=== PATIENT | female | born 1945 | race Caucasian/White ===

== ENCOUNTER 2017-03-10 10:23 | Outpatient (CLI) | payer MEDICARE ==
--- NOTE | 2017-03-11 13:51 | Mammography Report ---
DIGITAL SCREENING MAMMOGRAM: 03/10/2017 CLINICAL INDICATION: A 71-year-old nulliparous patient, for screening. COMPARISON: 02/2016, 02/2015, 02/2014, 02/2013, 02/2012, 02/2011, 02/2010. TECHNIQUE: Routine CC and MLO projections were obtained of the breasts. FINDINGS: The breasts again demonstrate fatty replacement bilaterally. Coarse, typically benign calc ifications are present. No suspicious masses, clustered microcalcifications, or regions of architectu ral distortion are identified. IMPRESSION: BENIGN FINDINGS. RECOMMENDATION: ROUTINE ANNUAL SCREENING UNLESS OTHERWISE CLINICALLY INDICATED. BIRADS CATEGORY 2-BENIGN FINDINGS. STANDARD QUALIFYING STATEMENTS 1. This examination was reviewed with the aid of Computer-Aided Detection (CAD). 2. A negative or benign imaging report should not delay biopsy if clinically suspicious findings are present. Consider surgical consultation if warranted. More than 5% of cancers are not identified by i maging. 3. Dense breasts may obscure an underlying neoplasm. JOB #: [id number] EXT JOB #:[id number]
== END 2017-03-10 10:24 | disposition home or self-care (01) ==
LOC: DI.N 10:23
PROVIDERS: ATTEND Family Medicine
DX: Z12.31 Encounter for screening mammogram for malignant neoplasm of breast (principal)
CPT/HCPCS: 77067

== ENCOUNTER 2018-01-04 20:58 | Outpatient (CLI) | payer MEDICARE ==
--- NOTE | 2018-01-05 11:37 | Ultrasound Report ---
Procedure Date: 01/04/2018 Accession Number: [id number] / [id number] Procedure: US - Abdomen Complete CPT Code: FULL RESULT: EXAM: Abdomen Complete DATE: 01/04/2018 9:35 PM CLINICAL HISTORY: IDIOPATHIC ACUTE PANCREATITIS W/UNINFECTED NECROSI COMPARISON: 04/11/2012 TECHNIQUE: Real-time scanning was performed with static images obtained. FINDINGS: Liver: Liver is echogenic, compatible with fatty infiltration. 15.7 cm. Main portal vein flow: Hepatopetal. Gallbladder: Normal. No stones, wall thickening, or sonographic Forbes's sign. Biliary System: Common bile duct measures 3 mm. No intrahepatic or extrahepatic ductal dilatation. Pancreas: Visualized portion is unremarkable. Kidneys: Right: 10.1 cm longitudinally. Normal. No contour-deforming mass, stones, or hydronephrosis. Left: 10.7 cm longitudinally. Normal. No contour-deforming mass, stones, or hydronephrosis. Spleen: 8.4 cm. Normal in size and echotexture. Aorta and Inferior Vena Cava: Unremarkable. IMPRESSION: Fatty infiltration of the liver. No evident pancreatic abnormality. No peripancreatic fluid identified. RADIA
== END 2018-01-04 20:59 | disposition home or self-care (01) ==
LOC: DI 20:58
PROVIDERS: ATTEND Family Medicine
DX: K76.0 Fatty (change of) liver, not elsewhere classified (principal)
CPT/HCPCS: 76700

== ENCOUNTER 2018-02-02 07:44 | Outpatient (CLI) | payer MEDICARE ==
--- NOTE | 2018-02-03 18:42 | MRI Report ---
Procedure Date: 02/02/2018 Accession Number: [id number] / [id number] Procedure: MRI - MRCP W/O CPT Code: FULL RESULT: EXAM: MR ABDOMEN WITHOUT CONTRAST (MR CHOLANGIOPANCREATOGRAPHY) EXAM DATE: 02/02/2018 08:49 AM. CLINICAL HISTORY: Epigastric pain, chronic pancreatitis. COMPARISON: Abdominal ultrasound 01/04/2018. TECHNIQUE: Multiplanar breath-hold T1 and T2 sequences obtained through the abdomen on an MR scanner. Dedicated 2D and 3D MRCP sequences obtained through the biliary and pancreatic ducts. No intravenous contrast given. FINDINGS: Lung Bases: Grossly clear. Gallbladder: Unremarkable. No filling defect or obvious wall thickening. Bile Ducts: No intrahepatic or extrahepatic ductal dilatation. CBD up to 6.3 mm in diameter. No intraductal filling defect or obstructing lesion identified. Grossly smooth ductal wall. Liver: Normal size and contour. Diffuse parenchymal signal loss on opposed phase gradient-echo consistent with steatosis. No focal lesion identified on this noncontrast exam. Normal signal void in major hepatic vasculature. Pancreas: Normal contour and signal. Divisum ductal anatomy. No ductal dilatation. There is subtle peripancreatic T2 hyperintensity posteriorly at the level of the body. No pseudocyst. Spleen: No splenomegaly or focal lesion identified. Adrenals: No nodule. Kidneys: Unremarkable. No hydronephrosis or focal lesion identified. Other: No acute intestinal abnormality identified. No pathologic adenopathy. Normal caliber abdominal aorta. Variant circumaortic left renal vein. No obvious marrow replacement process. IMPRESSION: 1. Possible mild acute pancreatitis. 2. Pancreas divisum. 3. Unremarkable gallbladder. No biliary dilatation or choledocholithiasis. 4. Moderate hepatic steatosis. RADIA
== END 2018-02-02 07:45 | disposition home or self-care (01) ==
LOC: DI 07:44
PROVIDERS: ATTEND Family Medicine
DX: R10.13 Epigastric pain (principal); K86.1 Other chronic pancreatitis; K76.0 Fatty (change of) liver, not elsewhere classified
CPT/HCPCS: 74181

== ENCOUNTER 2018-03-15 09:59 | Outpatient (CLI) | payer MEDICARE ==
--- NOTE | 2018-03-24 14:15 | Mammography Report ---
Reason: ROUTINE SCREENING MAMMO WITH NICOLE Procedure Date: 03/15/2018 Accession Number: [id number] / [id number] Procedure: SHAISTA - Screening Mammo w/Nicole CPT Code: FULL RESULT: EXAM: Screening Mammo w/Nicole DATE: 03/15/2018 11:04 AM CLINICAL HISTORY: 72 year-old nulliparous female presents for screening mammography. TECHNIQUE: Bilateral CC and MLO views were obtained. COMPARISON: 05/02/2017, 03/10/2017, 03/08/2016, 03/04/2015. FINDINGS: The breasts demonstrate scattered fibroglandular densities bilaterally. Typically benign coarse calcifications as well as typically benign large rodlike calcifications are seen bilaterally. No suspicious masses, clustered microcalcifications, or regions of architectural distortion are identified. IMPRESSION: Benign findings RECOMMENDATION: Routine annual screening unless otherwise clinically indicated. BIRADS CATEGORY 2: Benign findings STANDARD QUALIFYING STATEMENTS: 1. This examination was not reviewed with the aid of Computer-Aided Detection (CAD). 2. A negative or benign imaging report should not delay biopsy if clinically suspicious findings are present. Consider surgical consultation if warrented. More than 5% of cancers are not identified by imaging. 3. Dense breasts may obscure an underlying neoplasm. 4. This examination was reviewed with the aid of 3D breast imaging (tomosynthesis).
== END 2018-03-15 10:00 | disposition home or self-care (01) ==
LOC: DI 09:59
PROVIDERS: ATTEND Radiology Diagnostic Radiology
DX: Z12.31 Encounter for screening mammogram for malignant neoplasm of breast (principal)
CPT/HCPCS: 77063; 77067

== ENCOUNTER 2019-02-12 14:12 | Outpatient (CLI) | payer MEDICARE ==
--- NOTE | 2019-02-13 17:00 | XRAY Report ---
Reason: WRIST JOINT PAIN,RIGHT Procedure Date: 02/12/2019 Accession Number: [id number] / [id number] Procedure: XRN - Wrist 4 View RT CPT Code: FULL RESULT: EXAM: RIGHT WRIST RADIOGRAPHY EXAM DATE: 02/12/2019 02:28 PM. CLINICAL HISTORY: Right wrist pain. COMPARISON: None. TECHNIQUE: 3 views. FINDINGS: Bones: Nondisplaced fracture involving the radial styloid process is seen. The remainder of the osseous structures are intact. Bones are osteopenic. Joints: Mild degenerative changes are seen primarily in the first carpometacarpal and STT joint. Alignment is preserved. Soft Tissues: Normal. No soft tissue swelling. IMPRESSION: Nondisplaced radial styloid process fracture. RADIA
== END 2019-02-12 14:13 | disposition home or self-care (01) ==
LOC: DI.N 14:12
PROVIDERS: ATTEND Nurse Practitioner Gerontology
DX: S52.514A Nondisplaced fracture of right radial styloid process, initial encounter for closed fracture (principal)

== ENCOUNTER 2019-06-01 11:21 | Outpatient (CLI) | payer MEDICARE ==
--- NOTE | 2019-06-04 08:58 | DEXA Report ---
Reason: ASYMPTOMATIC POSTMENOPAUSAL STATUS Procedure Date: 06/01/2019 Accession Number: [id number] / [id number] Procedure: DEX - Dexa Spine and/or Hip CPT Code: Final Report FULL RESULT: EXAM: Dexa Spine and/or Hip DATE: 06/01/2019 11:42 AM CLINICAL HISTORY: ASYMPTOMATIC POSTMENOPAUSAL STATUS TECHNIQUE: Dual energy x-ray absorptiometry (DXA) was performed on a [employer] System. Regions measured are the AP Spine, femoral neck, and if needed forearm. COMPARISON: None. In accordance with the International Society for Clinical Densitometry (ISCD) guidelines, data from previous exams may be reanalyzed using current recommendations and techniques. This is done to allow a more accurate basis for comparison with the current study. FINDINGS: The data for the lumbar spine is as follows: BMD (g/cm/cm) T-SCORE Z-SCORE REGION L1 1.172 0.3 2.1 L2 1.358 1.3 3.0 L3 1.505 2.5 4.2 L4 1.509 2.6 4.3 TOTAL 1.398 1.8 3.5 NOTE: All evaluable vertebrae are used for classification The data for the hip is as follows: BMD (g/cm/cm) T-SCORE Z-SCORE REGION Neck 0.841 -1.4 0.5 TOTAL 0.976 -0.3 1.4 NOTE: The femoral neck or total proximal femur, whichever is lowest, is used for classification. IMPRESSION: THE WHO CLASSIFICATION BASED ON THE INTERNATIONAL REFERENCE STANDARD IS OSTEOPENIA. THE FRACTURE RISK IS INCREASED. RECOMMENDATION: Patients with diagnosis of osteoporosis or osteopenia should have regular bone mineral density assessment. For those eligible for Medicare, routine testing is allowed once every 2 years. Testing frequency can be increased for patients who have rapidly progressing disease or for those who are receiving medical therapy to restore bone mass. COMMENT: World Health Organization (WHO) definitions for osteoporosis and osteopenia: NORMAL BMD: T-score at -1.0 or higher, fracture risk is low OSTEOPENIA BMD: T-score between -1.0 and -2.5, fracture risk is increased. OSTEOPOROSIS BMD: T-score at -2.5 or lower, fracture risk is high. National Osteoporosis Foundation recommends: 1. Obtain adequate dietary calcium (at least 1200 mg per day) and vitamin D (400-800 international units per day). 2. Participate, as appropriate, in regular weightbearing and muscle-strengthening exercise. 3. Avoid tobacco use and reduce alcohol and caffeine intake. 4. For more detailed information see the website at www.NOF.org.
== END 2019-06-01 11:22 | disposition home or self-care (01) ==
LOC: DI 11:21
PROVIDERS: ATTEND Family Medicine
DX: M85.89 Other specified disorders of bone density and structure, multiple sites (principal); Z78.0 Asymptomatic menopausal state
CPT/HCPCS: 77080

== ENCOUNTER 2019-09-07 11:54 | Outpatient (CLI) | payer MEDICARE | END 2019-09-07 11:55 | disposition EMS.NT | LOC: EMS 11:54 | PROVIDERS: ATTEND Surgery | DX: S01.111A Laceration without foreign body of right eyelid and periocular area, initial encounter (principal); W01.0XXA Fall on same level from slipping, tripping and stumbling without subsequent striking against object, initial encounter; Y92.510 Bank as the place of occurrence of the external cause ==

== ENCOUNTER 2019-09-07 12:40 | Emergency (ER) | payer MEDICARE ==
[2019-09-07] MEDS ORDERED: LIDOCAINE-EPINEPH-TETRACAINE 3 ML SYRINGE TOP STA (13:34)
--- NOTE | 2019-09-07 14:07 | ED Physician Documentation ---
History of Present Illness - Stated complaint Stated Complaint: RT EYE LAC - Chief complaint Chief Complaint: Laceration - History obtained from History obtained from: Patient, Family - History of Present Illness Timing: Today Pain level max: 5 Pain level now: 2 - Additonal information Additional information: 74-year-old female was at the bank today when she tripped and fell, landing on her head. Complains of forehead pain and laceration to the forehead. no LOC. Nothing makes it better or worse. not on blood thinners. no focal neuro deficits. Review of Systems Ten Systems: 10 systems reviewed and negative Constitutional: denies: Fever, Chills Nose: denies: Rhinorrhea / runny nose, Congestion Respiratory: denies: Dyspnea GI: denies: Nausea, Vomiting, Diarrhea Skin: denies: Rash Musculoskeletal: denies: Neck pain, Back pain PD PAST MEDICAL HISTORY - Past Medical History Cardiovascular: Hypertension, High cholesterol Respiratory: None Endocrine/Autoimmune: Type 2 diabetes GI: Pancreatitis, Other : None HEENT: None Psych: None Musculoskeletal: Osteoarthritis Derm: None Other Past Medical History: Essential tremors. IBS. Marginal Lupus. polycystic ovaries - Past Surgical History General: Appendectomy, Colonoscopy HEENT: Cataracts, Tonsil/Adenoidectomy - Present Medications Home Medications: Ambulatory Orders Medication Instructions Recorded Confirmed Dicyclomine HCl 10 mg PO TID 11/26/15 11/26/15 Fluticasone [Flonase] 1 sprays LENORE DAILY 11/26/15 11/26/15 Glucosamine/D3/Boswellia Ivy 1 each PO DAILY 11/26/15 11/26/15 [Glucosamine Daily Complex Tab] Loratadine [Claritin] 10 mg PO DAILY 11/26/15 11/26/15 Losartan [Cozaar] 50 mg PO DAILY 11/26/15 11/26/15 Metformin HCl 1,000 mg PO BID 11/26/15 11/26/15 NIFEdipine [Procardia Xl] 30 mg PO BID 11/26/15 11/26/15 Propranolol [Inderal] 80 mg PO DAILY 11/26/15 11/26/15 Simvastatin 20 mg PO DAILY 11/26/15 11/26/15 Ubidecarenone [Co Q-10] 300 mg PO DAILY 11/26/15 11/26/15 Vit Z-Opqpjodf-Pc-Lyc-Plnt Str 1 each PO DAILY 11/26/15 11/26/15 [[facility] Packet] clonazePAM [Clonazepam] 1 mg PO BID 11/26/15 11/26/15 - Allergies Allergies/Adverse Reactions: Allergies Allergy/AdvReac Type Severity Reaction Status Date / Time cephalexin [From Keflex] AdvReac Itching Verified 09/07/19 12:53 lisinopril AdvReac Anxiety Verified 09/07/19 12:53 Phenothiazines AdvReac Cramps Verified 09/07/19 12:53 - Social History Does the pt smoke?: Yes Smoking Status: Current every day smoker Does the pt drink ETOH?: No - Immunizations Immunizations are current?: Yes PD ED PE NORMAL - Vitals Vital signs reviewed: Yes - General General: Alert and oriented X 3, No acute distress - HEENT HEENT: PERRL, Ears normal, Moist mucous membranes, Pharynx benign, Other (3cm forehead laceration. ) - Neck Neck: Supple, no meningeal sign - Cardiac Cardiac: RRR, Strong equal pulses - Respiratory Respiratory: No respiratory distress, Clear bilaterally - Abdomen Abdomen: Soft, Non tender, Non distended - Derm Derm: Warm and dry, No rash - Extremities Extremities: No edema - Neuro Neuro: Alert and oriented X 3 - Psych Psych: Normal mood, Normal affect Results - Vitals Vitals: Vital Signs - 24 hr 09/07/19 09/07/19 12:48 15:29 Temperature 36.3 C L Heart Rate 70 84 Respiratory 17 20 Rate Blood Pressure 157/62 H 148/88 H O2 Saturation 97 98 Oxygen O2 Source Room air - Rads (name of study) head CT Radiology: Prelim report reviewed, EMP read contemporaneously, See rad report (No acute intracranial abnormality) cervical spine CT Radiology: Prelim report reviewed, EMP read contemporaneously, See rad report (No acute abnormality) Procedures - Laceration (location) forehead Length in cm: 3 Wound type: Curved, Into subcut fat, Clean Neurovascular status: Sensory intact, Motor intact, Vascular intact Anesthesia: LET Wound Preparation: Irrigated copiously NS Skin layer closure: Nylon, Interrupted, Size #-0 - enter number (5) Other: Patient tolerated well, No complications, Neurovascular intact, Tetanus UTD Complexity: Simple PD MEDICAL DECISION MAKING - ED course Complexity details: reviewed results, re-evaluated patient, considered differential, d/w patient, d/w family ED course: No acute findings on head CT or cervical spine CT. Cervical spine cleared after negative CT scan. Wound was sutured closed. Tolerated well. Warnings of infection and instructions on wound care given at bedside. Also counseled on how to minimize scarring. Tdap up-to-date. Patient counseled regarding signs and symptoms for which I believe and urgent re-evaluation would be necessary. Patient with good understanding of and agreement to plan and is comfortable g oing home at this time This document was made in part using voice recognition software. While efforts are made to proofread this document, sound alike and grammatical errors may occur. Head injury instructions given at bedside Departure - Departure Disposition: 01 Home, Self Care Clinical Impression: Laceration of forehead Qualifiers: Encounter type: initial encounter Qualified Code(s): S01.81XA - Laceration without foreign body of other part of head, initial encounter Condition: Good Instructions: ED Laceration Facial Sutr Tape Follow-Up: Darrion Julian MD [Primary Care Provider] - (in 7-10 days for suture removal ) Comments: Return if you worsen. Follow up with your doctor in 7-10 days for suture removal. Discharge Date/Time: 09/07/19 16:17
--- NOTE | 2019-09-07 15:17 | CT Report ---
Reason: fall, head injury Procedure Date: 09/07/2019 Accession Number: [id number] / [id number] Procedure: CT - HEAD WO CPT Code: Final Report FULL RESULT: EXAM: CT HEAD EXAM DATE: 09/07/2019 03:02 PM. CLINICAL HISTORY: Fall, head injury. COMPARISON: None. TECHNIQUE: Multiaxial CT images were obtained from the foramen magnum to the vertex. Reformats: Sagittal and coronal. IV contrast: None. In accordance with CT protocol optimization, one or more of the following dose reduction techniques were utilized for this exam: automated exposure control, adjustment of mA and/or KV based on patient size, or use of iterative reconstructive technique. FINDINGS: PARENCHYMA: No acute hemorrhage, transcortical infarction or mass. Periventricular and white matter hypointensities are nonspecific but most consistent with chronic microvascular ischemic changes. EXTRA-AXIAL SPACES: No extra-axial fluid collections. No midline shift. VENTRICLES/SULCI: Enlargement of the lateral and third ventricles with prominence of the cortical sulci consistent with moderate cerebral volume loss. VASCULAR STRUCTURES: Arterial calcifications consistent with atherosclerosis. SINUSES: The visible paranasal sinuses and mastoid air cells are unremarkable. ORBITS: Status post bilateral cataract surgery. BONES: No displaced acute calvarial fracture. OTHER: Right periorbital laceration with underlying subcutaneous hematoma. IMPRESSION: 1. No acute intracranial findings. 2. Right periorbital laceration with underlying subcutaneous hematoma. RADIA
--- NOTE | 2019-09-07 15:23 | CT Report ---
Reason: fall. neck injury Procedure Date: 09/07/2019 Accession Number: [id number] / [id number] Procedure: CT - CERVICAL SPINE WO CPT Code: Final Report FULL RESULT: EXAM: CT CERVICAL SPINE WITHOUT CONTRAST DATE: 09/07/2019 03:02 PM. HISTORY: Fall. neck injury. COMPARISONS: None. TECHNIQUE: Thin-section axial images were acquired of the cervical spine without contrast. Post-processing: Coronal and sagittal reformats. Other: None. In accordance with CT protocol optimization, one or more of the following dose reduction techniques were utilized for this exam: automated exposure control, adjustment of mA and/or KV based on patient size, or use of iterative reconstructive technique. FINDINGS: Alignment: Grade 1 anterolisthesis C4 on C5. Grade 1 retrolisthesis C5 on C6. Bones: No fracture or bone lesion. Interspace Levels/Facets: C1-C2: Unremarkable. C2-C3: Left facet arthropathy C3-C4: Left neuroforamina narrowing. Left facet fusion C4-C5: Osteophyte, disk space narrowing. Right facet fusion Left neuroforamina narrowing C5-C6: Large osteophyte, disk space narrowing, subchondral sclerosis Bilateral neuroforaminal narrowing. Mild canal stenosis C6-C7: Osteophyte, disk space narrowing, subchondral sclerosis. Mild bilateral neuroforaminal narrowing C7-T1: Unremarkable. Musculature: Normal. No fatty atrophy. Other: The paravertebral and prevertebral soft tissues are unremarkable. Biapical scarring Ligamentum nuchae calcifications IMPRESSION: 1. Grade 1 anterolisthesis C4 on C5. Grade 1 retrolisthesis C5 on C6. 2. Moderate to severe DJD RADIA
[2019-09-07 15:29] VITALS: BP 148/88
[2019-09-07] MEDS ORDERED: BACITRACIN ZINC OINT 1 PACKET TOP STA (15:50)
== END 2019-09-07 16:17 | disposition home or self-care (01) ==
LOC: ED 12:40
DX: S01.81XA Laceration without foreign body of other part of head, initial encounter (principal); W01.0XXA Fall on same level from slipping, tripping and stumbling without subsequent striking against object, initial encounter; Y92.510 Bank as the place of occurrence of the external cause; M43.12 Spondylolisthesis, cervical region; M47.812 Spondylosis without myelopathy or radiculopathy, cervical region; I10 Essential (primary) hypertension; E78.00 Pure hypercholesterolemia, unspecified; E11.9 Type 2 diabetes mellitus without complications; F17.200 Nicotine dependence, unspecified, uncomplicated; M19.90 Unspecified osteoarthritis, unspecified site; Z79.84 Long term (current) use of oral hypoglycemic drugs
CPT/HCPCS: 12013; 70450; 72125; 99284; A9270

== ENCOUNTER 2020-04-11 10:51 | Outpatient (CLI) | payer MEDICARE ==
--- NOTE | 2020-04-14 16:12 | Mammography Report ---
BILATERAL DIGITAL SCREENING MAMMOGRAM 3D/2D: 04/11/2020 CLINICAL: Routine screening. Comparison is made to exams dated: 03/23/2019 mammogram, 03/15/2018 mammogram, 05/02/2017 mammogram, 02/28/2017 mammogram, 03/08/2016 mammogram, and 03/04/2015 mammogram - [facility]. The ti ssue of both breasts is predominantly fatty. There are benign calcifications in both breasts. No significant masses, calcifications, or other findings are seen in either breast. There has been no significant interval change. IMPRESSION: BENIGN There is no mammographic evidence of malignancy. A 1 year screening mammogram is recommended. This exam was interpreted at Station ID: [id number]. NOTE: For mammograms, a report in lay terms will be sent to the patient. Approximately 15% of breast malignancies will not be visualized mammographically. In the management of a palpable breast mass, a negative mammogram must not discourage biopsy of a clinically suspicious lesion. Electronically Signed By: Danielito Quintana M.D. atsandra/[email or web address]:04/11/2020 16:35:45 ACR BI-RADS Category 2: Benign Finding(s) 3342F PARENCHYMAL PATTERN: (F) - The breast(s) demonstrate(s) diffuse fatty replacement. BI-RADS CATEGORY: (2) - 2 RECOMMENDATION: (ANNUAL) - Recommend routine annual screening mammography. [id number] 1 year screening LATERALITY: (B)
== END 2020-04-11 10:52 | disposition home or self-care (01) ==
LOC: DI.N 10:51
PROVIDERS: ATTEND Family Medicine
DX: Z12.31 Encounter for screening mammogram for malignant neoplasm of breast (principal)
CPT/HCPCS: 77063; 77067

== ENCOUNTER 2020-07-02 12:39 | Outpatient (CLI) | payer MEDICARE ==
[2020-07-02 12:59] LABS: BASOPHILS % (AUTO) 0.4 %; EOSINOPHILS # (AUTO) 0.4 10^3/uL (0.0-0.7); EOSINOPHILS % (AUTO) 4.7 %; HGB - HEMOGLOBIN 14.3 g/dL (12.0-16.0); LYMPHOCYTES % (AUTO) 22.6 %; MEAN CORPUSCULAR HEMOGLOBIN 33.2 pg (27.0-31.0); MEAN CORPUSCULAR HGB CONC 33.3 g/dL (32.0-36.0); MEAN CORPUSCULAR VOLUME 99.5 fL (81.0-99.0); MONOCYTES # (AUTO) 0.6 10^3/uL (0.0-1.0); MONOCYTES % (AUTO) 7.1 %; NEUTROPHILS # (AUTO) 5.8 10^3/uL (1.5-6.6); NEUTROPHILS % (AUTO) 64.9 %; PLT - PLATELET COUNT 211 10^3/uL (130-450); RED BLOOD COUNT 4.31 10^6/uL (4.20-5.40); RED CELL DISTRIBUTION WIDTH 12.7 % (12.0-15.0)
[2020-07-02 13:14] LABS: ALBUMIN 3.8 g/dL (3.2-5.5); ALBUMIN/GLOBULIN RATIO 1.2 (1.0-2.2); BILIRUBIN,TOTAL 0.7 mg/dL (0.2-1.0); CALCIUM 9.4 mg/dL (8.5-10.3); CREATININE 0.7 mg/dL (0.4-1.0); TOTAL PROTEIN 7.1 g/dL (6.7-8.2)
== END 2020-07-02 12:40 | disposition home or self-care (01) ==
LOC: LAB 12:39
PROVIDERS: ATTEND Family Medicine
DX: K86.1 Other chronic pancreatitis (principal)
CPT/HCPCS: 36415; 80053; 83690; 85025

== ENCOUNTER 2020-07-02 13:01 | Outpatient (CLI) | payer MEDICARE ==
[2020-07-02] MEDS ORDERED: IOVERSOL 320 100 ML VIAL IVP ONE ×2 (13:20→16:12)
[2020-07-02] MEDS ORDERED: IOVERSOL 320 50 ML VIAL ONE (13:20)
--- NOTE | 2020-07-02 14:55 | CT Report ---
PROCEDURE: Abdomen/Pelvis W INDICATIONS: PANCREATIC DIVISUM, CHRONIC PANCREATITIS CONTRAST: IV CONTRAST: Optiray 320 ml: 100 PO CONTRAST: Optiray 320 ml50 TECHNIQUE: After the administration of oral and intravenous contrast, 5 mm thick sections acquired from the diap hragms to the symphysis. 5 mm thick coronal and sagittal reformats were acquired. For radiation dos e reduction, the following was used: automated exposure control, adjustment of mA and/or kV accordin g to patient size. COMPARISON: None. FINDINGS: Image quality: Excellent. ABDOMEN: Lung bases: Lung bases are clear. Heart size is normal. Coronary artery calcifications. Solid organs: Liver and spleen are normal in size and enhancement. Diffuse hepatic steatosis. Gallb ladder is unremarkable. Biliary system is non dilated. Pancreas enhances normally. No adrenal nodu les. Kidneys demonstrate normal size and enhancement, without hydronephrosis. Peritoneum and bowel: Bowel loops demonstrate normal wall thickness and caliber. No free fluid or a ir. Nodes and vessels: No retroperitoneal or mesenteric adenopathy by size criteria. Aorta and inferior vena cava are normal in size. Diffuse atherosclerotic calcifications. Incidental note is made of th e presence of a circumaortic left renal vein. Miscellaneous: No ventral hernias. PELVIS: Genitourinary: Bladder wall thickness is normal. Bladder distention is noted. Miscellaneous: No inguinal hernias or adenopathy. Bones: No suspicious bony lesions. No vertebral body compression fractures. Extensive degenerative changes in the spine. Left paracentral disc protrusion at T11-T12 results in mild canal stenosis, ec centric to the left. There is also probable canal stenosis at L4-L5. IMPRESSION: 1. No evidence of acute or chronic pancreatitis. 2. Diffuse hepatic steatosis. 3. A left paracentral disc protrusion is incidentally noted at T11-T12 resulting in mild canal stenos is. Above discussed with DAVID BARRERA at the time of dictation. Reviewed by: Clayton Burgos MD on 07/02/2020 2:53 PM PST Approved by: Clayton Burgos MD on 07/02/2020 2:53 PM PST Station ID: [id number]
[2020-07-02] MEDS ORDERED: IOVERSOL 320 50 ML VIAL PO ONE (16:11)
== END 2020-07-02 13:02 | disposition home or self-care (01) ==
LOC: DI 13:01
PROVIDERS: ATTEND Family Medicine
DX: K76.0 Fatty (change of) liver, not elsewhere classified (principal); K86.1 Other chronic pancreatitis
CPT/HCPCS: 36415; 74177; 80053; 83690; 85025; Q9967

== ENCOUNTER 2020-10-16 10:37 | Outpatient (CLI) | payer MEDICARE | END 2020-10-16 10:38 | disposition home or self-care (01) | LOC: NS 10:37 | PROVIDERS: ATTEND Family Medicine | DX: Z71.3 Dietary counseling and surveillance (principal); E11.9 Type 2 diabetes mellitus without complications | CPT/HCPCS: 97802 ==

== ENCOUNTER 2021-01-03 11:23 | Outpatient (CLI) | payer MEDICARE ==
--- NOTE | 2021-01-03 12:14 | XRAY Report ---
PROCEDURE: Wrist 3 View RT INDICATIONS: RIGHT THUMB SPRAIN TECHNIQUE: 3 views of the wrist were acquired. COMPARISON: 03/12/2019, 02/28/2019, 02/12/2019 FINDINGS: Bones: No acute fractures or dislocations. There is a healed radial styloid fracture seen. No suspic ious bony lesions. Age-appropriate degenerative changes are seen, which are worst involving the radi al aspect of the carpus. Soft tissues: No suspicious soft tissue calcifications. IMPRESSION: No focal abnormality of the thumb can be seen on these plain films. No acute bony abnormality is seen by plain film. If there is focal tenderness (or other strong clinical concern for a fracture that is not seen on thi s plain film study) then please consider a dedicated CT for further evaluation. There is a remote radial styloid fracture. Age-appropriate degenerative changes are seen. Reviewed by: Chris Hardy MD on 01/03/2021 11:12 AM MIKHAIL Approved by: Chris Hardy MD on 01/03/2021 11:12 AM MIKHAIL Station ID: [id number]
== END 2021-01-03 11:24 | disposition home or self-care (01) ==
LOC: DI.N 11:23
PROVIDERS: ATTEND Physician Assistant Medical
DX: M19.031 Primary osteoarthritis, right wrist (principal)

== ENCOUNTER 2021-04-15 10:25 | Outpatient (CLI) | payer MEDICARE ==
--- NOTE | 2021-04-20 10:16 | Mammography Report ---
BILATERAL DIGITAL SCREENING MAMMOGRAM 3D/2D: 04/15/2021 CLINICAL: Routine screening. Comparison is made to exams dated: 04/11/2020 mammogram, 03/23/2019 mammogram, 03/15/2018 mammogram, 1 07/02/2016 mammogram, 02/28/2017 mammogram, and 03/08/2016 mammogram - [facility]. The tissue of both breasts is predominantly fatty. There is a focal asymmetry in the right breast at 11 o'clock anterior depth. This is more prominent. Benign secretory calcifications in both breasts. No other significant masses, calcifications, or othe r findings are seen in either breast. IMPRESSION: INCOMPLETE: NEEDS ADDITIONAL IMAGING EVALUATION The focal asymmetry in the right breast is indeterminate. Additional views with possible ultrasound are recommended. This exam was interpreted at Station ID: [id number]. NOTE: For mammograms, a report in lay terms will be sent to the patient. Approximately 15% of breast malignancies will not be visualized mammographically. In the management of a palpable breast mass, a negative mammogram must not discourage biopsy of a clinically suspicious lesion. Electronically Signed By: Dominik Roman M.D. slc/:04/17/2021 14:13:33 ACR BI-RADS Category 0: Incomplete 3340F PARENCHYMAL PATTERN: (F) - The breast(s) demonstrate(s) diffuse fatty replacement. BI-RADS CATEGORY: (0) - 0 Mammo and [place] [id number] Immediate follow-up LATERALITY: (B)
== END 2021-04-15 10:26 | disposition home or self-care (01) ==
LOC: DI.N 10:25
DX: Z12.31 Encounter for screening mammogram for malignant neoplasm of breast (principal); N64.89 Other specified disorders of breast

== ENCOUNTER 2021-05-20 10:45 | Outpatient (CLI) | payer MEDICARE ==
--- NOTE | 2021-05-22 08:56 | Ultrasound Report ---
LIMITED ULTRASOUND OF RIGHT BREAST: 05/20/2021 CLINICAL: Patient returns today to evaluate a focal asymmetry in the right breast. Comparison is made to exams dated: 05/20/2021 mammogram, 04/15/2021 mammogram, 04/11/2020 mammogram, 03/23/2019 mammogram, 03/15/2018 mammogram, and 05/02/2017 mammogram - [facility]. Color flow and real-time ultrasound of the right breast 9-11 o'clock region were performed. Schaffer sca le images of the real-time examination were reviewed. No sonographic abnormality identified. IMPRESSION: NEGATIVE There is no sonographic evidence of malignancy. Return to annual mammogram screening schedule is rec ommended. This exam was interpreted at Station ID: [id number]. Electronically Signed By: Eliseo Roe M.D. jr/:05/20/2021 12:13:50 Ultrasound BI-RADS: 1 Negative BI-RADS CATEGORY: (1) - 1 Mammogram [id number] return to screening LATERALITY: (B)
--- NOTE | 2021-05-22 08:56 | Mammography Report ---
UNILATERAL RIGHT DIGITAL DIAGNOSTIC MAMMOGRAM 3D/2D: 05/20/2021 CLINICAL: Patient returns today to evaluate a focal asymmetry in the right breast. Comparison is made to exams dated: 04/15/2021 mammogram, 04/11/2020 mammogram, 03/23/2019 mammogram, 03/15/2018 mammogram, 05/02/2017 mammogram, and 02/28/2017 mammogram - [facility]. The tissue of right breast is predominantly fatty. There is a focal asymmetry in the right breast at 11 o'clock anterior depth. This is seen in additio nal views. This is not significantly changed. No other significant masses or calcifications are seen in the breast. IMPRESSION: INCOMPLETE: NEEDS ADDITIONAL IMAGING EVALUATION The focal asymmetry in the right breast is indeterminate. An ultrasound is recommended. This exam was interpreted at Station ID: [id number]. NOTE: For mammograms, a report in lay terms will be sent to the patient. Approximately 15% of breast malignancies will not be visualized mammographically. In the management of a palpable breast mass, a negative mammogram must not discourage biopsy of a clinically suspicious lesion. Electronically Signed By: Eliseo Roe M.D., jr/sherly:05/20/2021 11:47:07 ACR BI-RADS Category 0: Incomplete 3340F PARENCHYMAL PATTERN: (F) - The breast(s) demonstrate(s) diffuse fatty replacement. BI-RADS CATEGORY: (0) - 0 Ultrasound [id number] Immediate follow-up LATERALITY: (B)
== END 2021-05-20 10:46 | disposition home or self-care (01) ==
LOC: DI 10:45
PROVIDERS: ATTEND Family Medicine
DX: R92.8 Other abnormal and inconclusive findings on diagnostic imaging of breast (principal)

== ENCOUNTER 2022-04-21 10:20 | Outpatient (CLI) | payer MEDICARE ==
--- NOTE | 2022-04-22 12:52 | Mammography Report ---
BILATERAL DIGITAL SCREENING MAMMOGRAM 3D/2D: 04/21/2022 CLINICAL: Routine screening. Comparison is made to exams dated: 05/20/2021 ultrasound, 05/20/2021 mammogram, 04/15/2021 mammogram , 04/11/2020 mammogram, 03/23/2019 mammogram, and 03/15/2018 mammogram - [facility]. There are scattered areas of fibroglandular density in both breasts (category b / 25%-50% glandular t issue). There are benign diffuse calcifications in both breasts. No significant masses, calcifications, or other findings are seen in either breast. There has been no significant interval change. IMPRESSION: BENIGN There is no mammographic evidence of malignancy. A 1 year screening mammogram is recommended. Based on the Tyrer Cuzick model (a risk assessment model) the patients lifetime risk is 3.4% and her 10 year risk is 0.0%. According to the ACR, ACS, and NCCN guidelines, an annual breast MRI exam nasreen g with mammogram is recommended if the patients lifetime risk is 20% or greater. This exam was interpreted at Station ID: [id number]. NOTE: For mammograms, a report in lay terms will be sent to the patient. Approximately 15% of breast malignancies will not be visualized mammographically. In the management of a palpable breast mass, a negative mammogram must not discourage biopsy of a clinically suspicious lesion. Electronically Signed By: Eliseo Roe M.D., jr/sherly:04/21/2022 14:02:03 ACR BI-RADS Category 2: Benign Finding(s) 3342F PARENCHYMAL PATTERN: (A) - The breast(s) demonstrate(s) scattered fibroglandular densities. BI-RADS CATEGORY: (2) - 2 RECOMMENDATION: (ANNUAL) - Recommend routine annual screening mammography. [id number] 1 year screening LATERALITY: (B)
== END 2022-04-21 10:21 | disposition home or self-care (01) ==
LOC: DI.N 10:20
PROVIDERS: ATTEND Physician Assistant
DX: Z12.31 Encounter for screening mammogram for malignant neoplasm of breast (principal)

== ENCOUNTER 2022-05-10 08:00 | Outpatient (CLI) | payer MEDICARE | END 2022-05-10 23:59 | disposition home or self-care (01) | LOC: LAB.WC 08:00 | PROVIDERS: ATTEND Nurse Practitioner | DX: Z53.9 Procedure and treatment not carried out, unspecified reason (principal) ==

== ENCOUNTER 2023-04-21 10:16 | Outpatient (CLI) | payer MEDICARE ==
--- NOTE | 2023-04-22 10:28 | Mammography Report ---
BILATERAL DIGITAL SCREENING MAMMOGRAM 3D/2D: 04/21/2023 CLINICAL: Routine screening. Comparison is made to exams dated: 04/21/2022 mammogram, 05/20/2021 ultrasound, 05/20/2021 mammogram , 04/15/2021 mammogram, 04/11/2020 mammogram, and 03/23/2019 mammogram - [facility]. There are scattered areas of fibroglandular density in both breasts (category b / 25%-50% glandular t issue). There are benign diffuse calcifications in both breasts. No significant masses, calcifications, or other findings are seen in either breast. There has been no significant interval change. IMPRESSION: BENIGN There is no mammographic evidence of malignancy. A 1 year screening mammogram is recommended. Based on the Tyrer Cuzick model (a risk assessment model) the patients lifetime risk is 3.0% and her 10 year risk is 0.0%. According to the ACR, ACS, and NCCN guidelines, an annual breast MRI exam nasreen g with mammogram is recommended if the patients lifetime risk is 20% or greater. This exam was interpreted at Station ID: [id number]. NOTE: For mammograms, a report in lay terms will be sent to the patient. Approximately 15% of breast malignancies will not be visualized mammographically. In the management of a palpable breast mass, a negative mammogram must not discourage biopsy of a clinically suspicious lesion. Electronically Signed By: Dominik gandara/sherly:04/21/2023 17:57:39 letter sent: No_Letter ACR BI-RADS Category 2: Benign Finding(s) 3342F PARENCHYMAL PATTERN: (A) - The breast(s) demonstrate(s) scattered fibroglandular densities. BI-RADS CATEGORY: (2) - 2 Mammogram [id number] 1 year screening LATERALITY: (B)
== END 2023-04-21 10:17 | disposition home or self-care (01) ==
LOC: DI.N 10:16
DX: Z12.31 Encounter for screening mammogram for malignant neoplasm of breast (principal); R92.1 Mammographic calcification found on diagnostic imaging of breast; R92.323 Mammographic fibroglandular density, bilateral breasts

== ENCOUNTER 2024-01-17 10:35 | Outpatient (CLI) | payer MEDICARE ==
--- NOTE | 2024-01-17 11:27 | CARDIAC PROCEDURE NOTE ---
Stress Test Report Service Date: 01/17/24 Service Time: 11:00 Ordering Provider: Zandra Yip Indication for Test: Risk stratification and assessment of progressive exertional dyspnea. Significant Medical History: Lucy is referred for a treadmill stress echocardiogram today, apparently for a number of reasons. She has a markedly increased risk factor profile for atherosclerotic diseases and was recently diagnosed with a high-grade left subclavian artery stenosis as well as a right subclavian artery stenosis of moderate severity, for which continued observation and risk factor modification were recommended by a vascular surgeon. She also has a long and continued smoking history with ongoing, gradually progressive exertional dyspnea and her primary provider was concerned about the possibility of occult coronary heart disease. For many years Lucy has been treated for hypertension, hyperlipidemia and diabetes, and she has had a couple of stress tests along the way, with the last one about 10 years ago. In 2013 she had a diagnostic echocardiogram, showing mild left ventricular hypertrophy with normal systolic function, left atrial enlargement and elevation of estimated pulmonary artery pressure to 37 mmHg. She continues living independently in her home, is able to go up and down a flight of stairs, but she does not do regular exercise. She has limitation by shortness of breath, intermittent lightheadedness and has experienced some falls over the past several years. She does report a single episode of chest tightness with radiation to her jaw approximately 2 years ago, but has had no recurrence of these symptoms that she can recall since then. Cardiac Risk Factors: Positive for hypertension (treated for 25-30 years, now with losartan, nifedipine and propranolol ER, latter primarily for tremor), hyperlipidemia for similar duration (with fasting lipids in 07/20 including TChol 122, LDLc 57, HDLc 42 and TG 130), active tobacco smoking of 1/2 ppd with 60 pack year total exposure, treatment for diabetes since 2004 (on metformin and insulin) and family history of atherosclerotic disease in both parents at elder years. Type of Stress Test: ETT with Echocardiography Procedure: -Exercise Treadmill Test- After signing informed consent, the patient underwent echo imaging at rest and then performed treadmill exercise using a Modified Josh protocol. The patient exercised for 4 minutes 50 seconds and achieved a peak heart rate of 132 (93 percent predicted maximum heart rate for age), and an estimated workload of 3.4 METS. The test was terminated due to fatigue/shortness of breath. Resting heart rate: 75 Peak heart rate: 132 Normal response to exercise. Resting BP: 159/59 Peak BP: 206/71 Hypertensive resting systolic BP with hypertensive response of systolic BP and abnormal increase of diastolic BP to exercise. Room air oxygen saturation during exercise ranged between 95-97% by finger oximetry of the right hand. Rhythm during exercise: Sinus rhythm throughout, with rare isolated PVCs, a total of 8 recorded over 45 minutes of total monitoring. Symptoms: She reported increasing shortness of breath in stage I that progressed and ultimately became limiting with associated with bilateral leg heaviness, but she did not describe any chest pressure/discomfort at any time. EKG at rest showed normal sinus rhythm with normal QRS pattern, no evidence of prior infarct or chamber hypertrophy, but with scooping of the ST segments in some of the inferior and anterolateral leads. There was signficant EKG artifact during exercise and EKG at peak stress showed incremental ST depression to >1.5mm in leads II,III,V3-V6 that had normal ST segments been present at rest would qualify as an ischemic response; however the resting ST abnormality markedly reduces the specificity of this response for ischemia. In Recovery HR and BP normally returned to near baseline levels by 5:00. Echo imaging, performed at rest and with stress, will be reported separately. ITab MD, was present throughout this treadmill stress study and supervised it in its entirety. Summary: 1) Exercise tolerance was modestly reduced for age and sex, as evidenced by SAMMI of 7% (modified Josh protocol scale). 2) Abnormal resting EKG, with scattered mild ST depression. 3) Adequate level of exercise was achieved on this treadmill stress test. 4) Hypertensive at rest with abnormal hypertensive BP response to exercise. 5) No clear ischemic changes by EKG criteria were seen at peak stress. 6) Echo image interpretation reveals normal left ventricular size, wall thickness and systolic function, with appropriate hyperdynamic augmentation of all segments with exercise, indicating no evidence of prior infarct or inducible ischemia. On screening study elevation of estimated pulmonary artery systolic pressure to 50 mmHg with normal CVP was seen, without structural valve abnormality. See separate report for more details. Conclusions and Recommendations: 1) Overall these are reassuring treadmill stress echocardiogram results obtained using a modified Josh protocol, with no symptom or echocardiographic evidence of inducible ischemia. There was incremental ST depression over the abnormal baseline but the predictive value of this finding for ischemia is reduced and not likely relevant, given the normal response seen by serial good quality echo imaging evaluation. 2) The estimate of resting pulmonary artery systolic pressure was increased to 50 mmHg from 37 mmHg seen on a diagnostic echocardiogram 10 years ago. This was discussed with the patient, along with a recommendation to discontinue tobacco smoking, to which this change is attributed, but she indicated that she does not intend to stop smoking at this time. I did encourage her to continue with medications for her other conditions and told her that with today's results it would likely be safe for her to undergo needed major surgery in the next couple of years, especially if she were to develop symptoms of left subclavian artery insufficiency in her arm/hand.
== END 2024-01-17 10:36 | disposition home or self-care (01) ==
LOC: DI 10:35
PROVIDERS: ATTEND Physician Assistant
DX: R06.00 Dyspnea, unspecified (principal); I27.20 Pulmonary hypertension, unspecified; I10 Essential (primary) hypertension; E78.5 Hyperlipidemia, unspecified; E11.9 Type 2 diabetes mellitus without complications; F17.200 Nicotine dependence, unspecified, uncomplicated; Z79.4 Long term (current) use of insulin; Z79.84 Long term (current) use of oral hypoglycemic drugs; Z82.49 Family history of ischemic heart disease and other diseases of the circulatory system
CPT/HCPCS: 93350